=== PATIENT | male | born 1950 | race Caucasian/White ===

== ENCOUNTER 2017-09-30 08:24 | Day surgery (SDC) | payer MEDICARE, OTHER ==
[2017-09-28 11:23] LABS: BASOPHILS # (AUTO) 0.05 x10^3/uL (0-0.1); BASOPHILS % (AUTO) 1 % (0-1); EOSINOPHILS # (AUTO) 0.12 x10^3/uL (0-0.4); EOSINOPHILS % (AUTO) 2 % (1-7); LYMPHOCYTES # (AUTO) 1.78 x10^3/uL (1-3.4); LYMPHOCYTES % (AUTO) 35 % (22-44); MD NO; MEAN CORPUSCULAR HEMOGLOBIN 34.4 pg (27.5-34.5); MEAN CORPUSCULAR HGB CONC 34.1 g/dL (33.2-36.2); MEAN PLATELET VOLUME 8.2 fL (7.4-10.4); MONOCYTES # (AUTO) 0.58 x10^3/uL (0.2-0.8); MONOCYTES % (AUTO) 11 % (2-9); NEUTROPHILS # (AUTO) 2.53 x10^3/uL (1.8-6.8); NEUTROPHILS % (AUTO) 50 % (42-75); PLATELET COUNT 313 x10^3/uL (130-400); RED BLOOD COUNT 4.41 x10^6/uL (4.38-5.82); RED CELL DISTRIBUTION WIDTH 14.4 % (9.4-14.8)
[2017-09-28 11:24] VITALS: BP 136/88
[2017-09-28 11:37] LABS: ALANINE AMINOTRANSFERASE 38 U/L (12-78); ALBUMIN 3.8 g/dL (3.4-5.0); ANION GAP 8 mmol/L (5-15); CALCIUM 10.1 mg/dL (8.5-10.1); CHLORIDE 102 mmol/L (98-107); CREATININE 1.03 mg/dL (0.7-1.3)
[2017-09-28 11:39] LABS: ALKALINE PHOSPHATASE 48 U/L (45-117); BILIRUBIN,TOTAL 0.5 mg/dL (0.2-1.0); TOTAL PROTEIN 7.9 g/dL (6.4-8.2)
[~2017-09-30] VITALS: Ht 170.2 cm; Wt 72.7 kg
[~2017-09-30 08:24] MED LIST: CHOL10003 PO; DILT240C9 PO; HYDR12.58 PO; LOSA100T6 PO; METO25TA91 PO; SIMV20TA3 PO; VITAMIN B 12 PO
[2017-09-30] MEDS ORDERED: SODIUM CHLORIDE 0.9% 1,000 ML IV ONE (08:53)
[2017-09-30] MEDS ORDERED: FENTANYL PF 100 MCG/2ML ONE (09:31)
[2017-09-30] MEDS ORDERED: TICAGRELOR 90 MG TABLET ONE (09:31)
[2017-09-30] MEDS ORDERED: LIDOCAINE 2%, 20ML ONE (09:32)
[2017-09-30] MEDS ORDERED: NITROGLYCERIN 5 MG/ML, 10ML ONE (09:32)
[2017-09-30] MEDS ORDERED: BIVALIRUDIN 250 MG ONE (09:32)
[2017-09-30] MEDS ORDERED: VERAPAMIL 2.5 MG/ML, 2ML ONE (09:32)
[2017-09-30] MEDS ORDERED: HEPARIN 1,000 UNITS/ML, 10ML ONE (09:32)
[2017-09-30] MEDS ORDERED: MIDAZOLAM 1 MG/ML, 2ML ONE (09:33)
[2017-09-30] MEDS ORDERED: SODIUM CHLORIDE 0.9% 1,000 ML IV SCH (11:19)
[2017-09-30] MEDS ORDERED: ACETAMINOPHEN 325 MG TABLET ONE (12:41)
== END 2017-09-30 14:23 ==
LOC: CACL 08:24
PROVIDERS: ATTEND Internal Medicine Cardiovascular Disease
DX: I25.119 Atherosclerotic heart disease of native coronary artery with unspecified angina pectoris (principal); I10 Essential (primary) hypertension; E78.5 Hyperlipidemia, unspecified; I35.0 Nonrheumatic aortic (valve) stenosis; I70.213 Atherosclerosis of native arteries of extremities with intermittent claudication, bilateral legs
CPT/HCPCS: 36415; 80053; 85025; 93458; 99156; 99157; C1753; C1894; J1644; J2250; J3010; J3490; Q9967; J0583

== ENCOUNTER → 2018-11-07 | Outpatient (CLI) | payer OTHER ==
[~2018-11-07] MED LIST changes: -HYDR12.58 PO; +HYDROCHLOROTH12.5 MG PO; +LOSA100T14 PO; -LOSA100T6 PO
== END | disposition home or self-care (01) ==
LOC: ROC 08:05
PROVIDERS: ATTEND Radiology Radiation Oncology
DX: C34.90 Malignant neoplasm of unspecified part of unspecified bronchus or lung (principal); I10 Essential (primary) hypertension; I73.9 Peripheral vascular disease, unspecified; E78.00 Pure hypercholesterolemia, unspecified; I35.0 Nonrheumatic aortic (valve) stenosis; J44.9 Chronic obstructive pulmonary disease, unspecified; Z95.1 Presence of aortocoronary bypass graft; Z79.82 Long term (current) use of aspirin; Z79.899 Other long term (current) drug therapy; Z87.891 Personal history of nicotine dependence
CPT/HCPCS: 99214; G0463

== ENCOUNTER 2019-01-13 07:22 | Outpatient (CLI) | payer OTHER | END 2019-01-13 23:59 | disposition home or self-care (01) | LOC: ROC 07:22 | PROVIDERS: ATTEND Radiology Radiation Oncology | DX: Z02.9 Encounter for administrative examinations, unspecified (principal) ==

== ENCOUNTER 2019-03-15 14:07 | Outpatient (CLI) | payer OTHER | END 2019-03-15 23:59 | disposition home or self-care (01) | LOC: ROC 14:07 | PROVIDERS: ATTEND Radiology Radiation Oncology | DX: C34.32 Malignant neoplasm of lower lobe, left bronchus or lung (principal) | CPT/HCPCS: 99213; G0463 ==